=== PATIENT | female | born 1950 | race Caucasian/White ===

== ENCOUNTER → 2021-08-11 | Outpatient (CLI) | payer OTHER ==
[~2021-08-11] VITALS: Ht 175.3 cm; Wt 90.7 kg
[~2021-08-11] MED LIST: AMPICILLIN 500500 MG PO; CODEINE PO; COZAAR50 MG PO; DIFLUCAN150 MG PO; FEBUXOSTAT80 MG PO; FIORINAL PO; FOLIC ACID 1 MG1 MG PO; GABAPENTIN300 MG PO; HYDROCHLOROTHIA25 MG PO; INDERAL LA80 MG PO; METHOTREXATE T2.5 MG PO; NORCO 5-325 TA1 EACH PO; NORVASC10 MG PO; PERCOCET 5-3251 EACH PO; PHENERGAN 25 MG25 M1 PO; PYRIDIUM100 MG PO; SEROQUEL50 MG PO; SINGULAIR10 MG PO; XANAX0.5 MG PO; ZANAFLEX4 MG PO
== END ==
LOC: EROP 12:15
DX: U07.1 COVID-19 (principal); Z23 Encounter for immunization; I10 Essential (primary) hypertension
CPT/HCPCS: M0247; Q0247

== ENCOUNTER → 2021-10-16 | Outpatient (CLI) | payer OTHER | LOC: MAMO 10:48 | DX: Z12.31 Encounter for screening mammogram for malignant neoplasm of breast (principal) | CPT/HCPCS: 77063; 77067 ==

== ENCOUNTER 2021-12-26 16:04 | Emergency (ER) | payer OTHER ==
[2021-12-26 16:39] LABS: RED BLOOD COUNT 4.36 M/UL (4.00-5.10); WHITE BLOOD COUNT 8.6 K/UL (4.5-11.0)
[2021-12-26 17:10] LABS: BUN/CREATININE RATIO 17 (0-10)
[2021-12-26] MEDS ORDERED: MOLNUPIRAVIR (200 MG PO (18:14)
== END 2021-12-26 18:21 | disposition home or self-care (01) ==
LOC: ER1 16:04
PROVIDERS: Emergency Medicine
DX: U07.1 COVID-19 (principal); I10 Essential (primary) hypertension; E11.9 Type 2 diabetes mellitus without complications
CPT/HCPCS: 0240U; 36600; 71045; 80053; 82550; 82553; 82803; 84484; 85025; 93005; 99285